=== PATIENT | male | born 1995 | race Asian ===

== ENCOUNTER 2022-06-06 12:54 | Emergency (ER) | payer OTHER ==
[~2022-06-06] VITALS: Ht 180.3 cm; Wt 79.4 kg
[2022-06-06 13:00] VITALS: BP 127/78; TEMP 102.2
== END 2022-06-06 14:52 | disposition home or self-care (01) ==
LOC: ED 12:54
DX: U07.1 COVID-19 (principal); J02.9 Acute pharyngitis, unspecified
CPT/HCPCS: 87502; 87651; 99283